=== PATIENT | male | born 1950 | race Caucasian/White ===

== ENCOUNTER 2018-10-28 22:44 | Emergency (ER) | payer MEDICARE, BC ==
--- NOTE | 2018-10-28 23:17 | EDM.PDOC ---
ED HPI GENERAL MEDICAL PROBLEM - General Chief Complaint: Chest Pain Stated Complaint: FELL AND HURT RIB CAGE [id number] Time Seen by Provider: 10/28/18 23:14 Source of Information: Reports: Patient History Limitations: Reports: No Limitations - History of Present Illness INITIAL COMMENTS - FREE TEXT/NARRATIVE: states fell onto metal steps going into the [place] at 1pm today been hurting since. denies urine colour change, denies abd pain as result but has been nervous about the pain and been tightening abd muscle more than usual. otherwise only left rib area hurts. ate dinner fine without problems. Left Thoracic Pain Score (Numeric/FACES): 6 - Related Data Allergies Allergy/AdvReac Type Severity Reaction Status Date / Time amoxicillin [Amoxicillin] Allergy Blisters Verified 10/28/18 23:00 amoxicillin trihydrate Allergy Blisters Verified 10/28/18 23:00 [From Augmentin] potassium clavulanate Allergy Blisters Verified 10/28/18 23:00 [From Augmentin] propoxyphene Allergy Rash Verified 10/28/18 23:00 rofecoxib Allergy Weakness Verified 10/28/18 23:00 Home Meds: Home Meds Ciprofloxacin HCl 500 mg PO BID 04/01/14 [History] Simvastatin 20 mg PO BEDTIME 04/01/14 [History] Tamsulosin HCl 0.4 mg PO BEDTIME 04/01/14 [History] Past Medical History HEENT History: Reports: Hard of Hearing, Impaired Vision Other HEENT History: Hortons disease Cardiovascular History: Reports: High Cholesterol Respiratory History: Reports: COPD Musculoskeletal History: Reports: Back Pain, Chronic Oncologic (Cancer) History: Reports: Prostate Social & Family History - Tobacco Use Smoking Status *Q: Current Every Day Smoker Years of Tobacco use: 53 Packs/Tins Daily: 0.5 Second Hand Smoke Exposure: Yes - Recreational Drug Use Recreational Drug Use: No ED ROS GENERAL - Review of Systems Review Of Systems: ROS reveals no pertinent complaints other than HPI. ED EXAM, GENERAL - Physical Exam Exam: See Below Exam Limited By: No Limitations General Appearance: Alert, WD/WN, Mild Distress, Other (disomcfort) Ears: Hearing Grossly Normal Throat/Mouth: Normal Voice, No Airway Compromise Head: Atraumatic Neck: Non-Tender, Full Range of Motion Respiratory/Chest: No Respiratory Distress, Lungs Clear, Normal Breath Sounds, Other (tender left lateral subcostal without E/C) Cardiovascular: Regular Rate, Rhythm GI/Abdominal: Soft, Non-Tender Neurological: Alert, Oriented, Normal Cognition, Normal Gait, No Motor/Sensory Deficits Psychiatric: Flat Affect Skin Exam: Warm, Dry, Normal Color Lymphatic: No Adenopathy Course - Vital Signs Last Recorded V/S: Last Vital Signs Temp 36.5 C 10/28/18 22:56 Pulse 65 10/28/18 22:56 Resp 18 10/28/18 22:56 BP 144/88 H 10/28/18 22:56 Pulse Ox 97 10/28/18 22:56 - Orders/Labs/Meds Orders: Active Orders 24 hr Category Date Time Status Ribs 2V w Chest Lt [CR] Urgent Exams 10/28/18 23:09 Ordered - Re-Assessments/Exams Free Text/Narrative Re-Assessment/Exam: 10/28/18 23:49 negative results discussed with pt who states tylenol is aedaquate for his relief. Departure - Departure Time of Disposition: 23:49 Disposition: Home, Self-Care 01 Condition: Good Clinical Impression: Contusion of rib on left side Qualifiers: Encounter type: initial encounter Qualified Code(s): S20.212A - Contusion of left front wall of thorax, initial encounter - Discharge Information Instructions: Rib Contusion Forms: ED Department Discharge Additional Instructions: 1) avoid further injury 2) take frequent deep breaths 3) recheck if there is any change or concern - My Orders Last 24 Hours: My Active Orders 10/28/18 23:09 Ribs 2V w Chest Lt [CR] Urgent - Assessment/Plan Last 24 Hours: My Active Orders 10/28/18 23:09 Ribs 2V w Chest Lt [CR] Urgent
== END 2018-10-28 23:59 | disposition home or self-care (01) ==
LOC: DL.ED 22:44
DX: S20.212A Contusion of left front wall of thorax, initial encounter (principal); F17.210 Nicotine dependence, cigarettes, uncomplicated; Z88.1 Allergy status to other antibiotic agents; W10.8XXA Fall (on) (from) other stairs and steps, initial encounter
CPT/HCPCS: 71101-LT; 99283; 99283-25

== ENCOUNTER 2018-11-01 23:05 | Inpatient (IN) | payer MEDICARE, BC ==
--- NOTE | 2018-11-01 23:07 | EDM.PDOC ---
ED HPI GENERAL MEDICAL PROBLEM - General Stated Complaint: FEVER OF 102 AND HAVENT HAD BOWL MOVEMENT Time Seen by Provider: 11/01/18 23:20 Source of Information: Reports: Patient, Family, RN, RN Notes Reviewed History Limitations: Reports: No Limitations - History of Present Illness INITIAL COMMENTS - FREE TEXT/NARRATIVE: Pt to ER with c/o fever and no BM since Wednesday. Patient states on Wednesday he slipped off the step of his skidsteer and injured the left anterior ribs. Patient states he was seen in the ER and there were no fractures. He states he has not been using narcotic pain medications, but Tylenol and a "muscle relaxant ". He states he has not been up and around much, and it is very painful to take deep breaths. He states yesterday he began having chill. Today chills, fever up to 102, nausea, SOB, and still no BM. He states he had a suppository a few days ago and only watery stool came out. Onset: Gradual Lower Abdomen Pain Score (Numeric/FACES): 6 - Related Data Allergies Allergy/AdvReac Type Severity Reaction Status Date / Time amoxicillin [Amoxicillin] Allergy Blisters Verified 11/01/18 23:24 amoxicillin trihydrate Allergy Blisters Verified 11/01/18 23:24 [From Augmentin] potassium clavulanate Allergy Blisters Verified 11/01/18 23:24 [From Augmentin] propoxyphene Allergy Rash Verified 11/01/18 23:24 rofecoxib Allergy Weakness Verified 11/01/18 23:24 Home Meds: Home Meds Ciprofloxacin HCl 500 mg PO BID 04/01/14 [History] Simvastatin 20 mg PO BEDTIME 04/01/14 [History] Tamsulosin HCl 0.4 mg PO BEDTIME 04/01/14 [History] Past Medical History HEENT History: Reports: Hard of Hearing, Impaired Vision Other HEENT History: Hortons disease Cardiovascular History: Reports: High Cholesterol Respiratory History: Reports: COPD Musculoskeletal History: Reports: Back Pain, Chronic Oncologic (Cancer) History: Reports: Prostate ED ROS GENERAL - Review of Systems Review Of Systems: ROS reveals no pertinent complaints other than HPI. ED EXAM, GENERAL - Physical Exam Exam: See Below Exam Limited By: No Limitations General Appearance: Alert, WD/WN, Moderate Distress Eye Exam: Bilateral Eye: EOMI, Normal Inspection Ears: Normal External Exam, Hearing Grossly Normal Nose: Normal Inspection Throat/Mouth: Normal Inspection, Normal Voice, No Airway Compromise Head: Atraumatic, Normocephalic Neck: Normal Inspection, Supple, Non-Tender, Full Range of Motion Respiratory/Chest: Decreased Breath Sounds (left), Crackles (left base) Cardiovascular: Normal Peripheral Pulses, Regular Rate, Rhythm, No Edema, No Gallop, No JVD, No Murmur, No Rub Peripheral Pulses: 2+: Radial (L), Radial (R) GI/Abdominal: Distended, Guarding, Tender, Abnormal Bowel Sounds (hyperactive) (Male) Exam: Deferred Rectal (Males) Exam: Deferred Back Exam: Normal Inspection, Full Range of Motion, NT Extremities: Normal Inspection, Normal Range of Motion, Non-Tender, Normal Capillary Refill, No Pedal Edema Neurological: Alert, Oriented, CN II-XII Intact, Normal Cognition, Normal Gait, Normal Reflexes, No Motor/Sensory Deficits Psychiatric: Normal Affect, Normal Mood Skin Exam: Warm, Dry, Intact, Normal Color, No Rash Lymphatic: No Adenopathy Course - Vital Signs Last Recorded V/S: Last Vital Signs Temp 98.7 F 11/02/18 00:08 Pulse 77 11/02/18 00:08 Resp 14 11/02/18 00:08 BP 126/53 L 11/02/18 00:08 Pulse Ox 94 L 11/02/18 00:08 - Orders/Labs/Meds Orders: Active Orders 24 hr Category Date Time Status Abdomen 2V AP Flat Upright [CR] Urgent Exams 11/01/18 23:30 Taken Chest 2V [CR] Urgent Exams 11/01/18 23:30 Taken CULTURE BLOOD [BC] Stat Lab 11/01/18 23:20 Results CULTURE BLOOD [BC] Stat Lab 11/01/18 23:25 Received Sodium Chloride 0.9% [Normal Saline] 1,000 ml Med 11/01/18 23:45 Active IV ASDIRECTED Blood Culture x2 Reflex Set [OM.PC] Stat Oth 11/01/18 23:11 Ordered Medication Orders Sodium Chloride (Normal Saline) 1,000 mls @ 999 mls/hr IV ASDIRECTED ABDI Last Admin: 11/01/18 23:50 Dose: 999 mls/hr Labs: Laboratory Tests 11/01/18 11/01/1811/01/19 Range/Units 23:20 23:20 23:20 WBC 19.0 H (5.0-10.0) 10^3/uL RBC 4.73 (4.6-6.2) 10^6/uL Hgb 14.1 D (14.0-18.0) g/dL Hct 42.3 (40.0-54.0) % MCV 89.4 (80-100) fL MCH 29.8 (27.0-34.0) pg MCHC 33.3 (33.0-35.0) g/dL Plt Count 303 D (150-450) 10^3/uL Neut % (Auto) 86.6 H (42.2-75.2) % Lymph % (Auto) 5.4 L (20.5-50.1) % Tripp % (Auto) 7.6 (2-8) % Eos % (Auto) 0.2 L (1.0-3.0) % Baso % (Auto) 0.2 (0.0-1.0) % Sodium 132 L (135-145) mmol/L Potassium 3.7 (3.6-5.0) mmol/L Chloride 96 L (101-111) mmol/L Carbon Dioxide 24.0 (21.0-31.0) mmol/L Anion Gap 15.7 BUN 18 (7-18) mg/dL Creatinine 1.5 H (0.6-1.3) mg/dL Est Cr Clr Drug Dosing 47.84 mL/min Estimated GFR (MDRD) 47 BUN/Creatinine Ratio 12.00 Glucose 122 H (74-105) mg/dL Lactic Acid 0.9 (0.5-2.2) mmol/L Calcium 8.9 (8.4-10.2) mg/dl Total Bilirubin 0.9 (0.2-1.0) mg/dL AST 17 (10-42) IU/L ALT 11 (10-60) IU/L Alkaline Phosphatase 61 (42-121) IU/L Total Protein 6.7 (6.7-8.2) g/dl Albumin 3.5 (3.2-5.5) g/dl Globulin 3.2 Albumin/Globulin Ratio 1.09 Urine Color (YELLOW) Urine Appearance (CLEAR) Urine pH (5.0-9.0) Ur Specific [place] (1.005-1.030) Urine Protein (NEGATIVE) Urine Glucose (UA) (NEGATIVE) Urine Ketones (NEGATIVE) Urine Occult Blood (NEGATIVE) Urine Nitrite (NEGATIVE) Urine Bilirubin (NEGATIVE) Urine Urobilinogen (0.2-1.0) mg/dL Ur Leukocyte Esterase (NEGATIVE) Urine RBC /HPF Urine WBC (0-5/HPF) /HPF Ur Epithelial Cells (NOT SEEN) /HPF Urine Bacteria (0-FEW/HPF) /HPF Hyaline Casts (NOT SEEN) /LPF 11/02/18 Range/Units 01:04 WBC (5.0-10.0) 10^3/uL RBC (4.6-6.2) 10^6/uL Hgb (14.0-18.0) g/dL Hct (40.0-54.0) % MCV (80-100) fL MCH (27.0-34.0) pg MCHC (33.0-35.0) g/dL Plt Count (150-450) 10^3/uL Neut % (Auto) (42.2-75.2) % Lymph % (Auto) (20.5-50.1) % Tripp % (Auto) (2-8) % Eos % (Auto) (1.0-3.0) % Baso % (Auto) (0.0-1.0) % Sodium (135-145) mmol/L Potassium (3.6-5.0) mmol/L Chloride (101-111) mmol/L Carbon Dioxide (21.0-31.0) mmol/L Anion Gap BUN (7-18) mg/dL Creatinine (0.6-1.3) mg/dL Est Cr Clr Drug Dosing mL/min Estimated GFR (MDRD) BUN/Creatinine Ratio Glucose (74-105) mg/dL Lactic Acid (0.5-2.2) mmol/L Calcium (8.4-10.2) mg/dl Total Bilirubin (0.2-1.0) mg/dL AST (10-42) IU/L ALT (10-60) IU/L Alkaline Phosphatase (42-121) IU/L Total Protein (6.7-8.2) g/dl Albumin (3.2-5.5) g/dl Globulin Albumin/Globulin Ratio Urine Color Yellow (YELLOW) Urine Appearance Slightly cloudy (CLEAR) Urine pH 7.0 (5.0-9.0) Ur Specific [place] 1.015 (1.005-1.030) Urine Protein Negative (NEGATIVE) Urine Glucose (UA) Negative (NEGATIVE) Urine Ketones Negative (NEGATIVE) Urine Occult Blood Moderate H (NEGATIVE) Urine Nitrite Negative (NEGATIVE) Urine Bilirubin Negative (NEGATIVE) Urine Urobilinogen 0.2 (0.2-1.0) mg/dL Ur Leukocyte Esterase Negative (NEGATIVE) Urine RBC 5-10 H /HPF Urine WBC 0-5 (0-5/HPF) /HPF Ur Epithelial Cells Few (NOT SEEN) /HPF Urine Bacteria Moderate H (0-FEW/HPF) /HPF Hyaline Casts Few H (NOT SEEN) /LPF Meds: Medications Generic Name Dose Route Start Last Admin Trade Name Freq PRN Reason Stop Dose Admin Sodium Chloride 1,000 mls @ 999 mls/hr 11/01/18 23:45 11/01/18 23:50 Normal Saline IV 999 mls/hr ASDIRECTED ABDI Administration Discontinued Medications Generic Name Dose Route Start Last Admin Trade Name Freq PRN Reason Stop Dose Admin Ondansetron HCl 4 mg 11/01/18 23:43 11/01/18 23:55 Zofran IV 11/01/18 23:44 4 mg ONETIME ONE Administration - Radiology Interpretation Free Text/Narrative:: Chest xray: FINDINGS: Lungs: Artifact or moderate sized layering left pleural effusion. Possible subsegmental atelectasis or pneumonia also left lung base. Pleural space: Unremarkable. No pleural effusion. No pneumothorax. Heart/Mediastinum: The cardiac silhouette is not enlarged. Bones/joints: Pectus excavatum deformity. IMPRESSION: 1. Artifact or moderate sized layering left pleural effusion. 2. Possible subsegmental atelectasis or pneumonia also left lung base. 3. These findings were not appreciated previously. Thank you for allowing us to participate in the care of your patient. Dictated and Authenticated by: Ramos Aparicio MD 11/02/2018 1:14 AM Central Time ([place] & [place]) Flat and upright xray: FINDINGS: Gastrointestinal tract: Normal. No bowel dilation. Intraperitoneal space: Lymphadenectomy clips in the pelvis. Bones/joints: Unremarkable for age. IMPRESSION: 1. No obstruction. 2. There is an above average quantity of stool within colon to the rectum. Thank you for allowing us to participate in the care of your patient. Dictated and Authenticated by: Ramos Aparicio MD 11/02/2018 1:18 AM Central Time ([place] & [place]) See rad report Departure - Departure Time of Disposition: 01:35 Disposition: Admitted As Inpatient 66 Condition: Fair Clinical Impression: Pneumonia Qualifiers: Pneumonia type: due to unspecified organism Laterality: left Lung location: lower lobe of lung Qualified Code(s): J18.1 - Lobar pneumonia, unspecified organism Contusion of rib on left side Qualifiers: Encounter type: initial encounter Qualified Code(s): S20.212A - Contusion of left front wall of thorax, initial encounter Constipation Qualifiers: Constipation type: unspecified constipation type Qualified Code(s): K59.00 - Constipation, unspecified - Discharge Information *PRESCRIPTION DRUG MONITORING PROGRAM REVIEWED*: No *COPY OF PRESCRIPTION DRUG MONITORING REPORT IN PATIENT JAYE: No - My Orders Last 24 Hours: My Active Orders 11/01/18 23:11 Blood Culture x2 Reflex Set [OM.PC] Stat 11/01/18 23:20 CULTURE BLOOD [BC] Stat 11/01/18 23:25 CULTURE BLOOD [BC] Stat 11/01/18 23:30 Abdomen 2V AP Flat Upright [CR] Urgent Chest 2V [CR] Urgent 11/01/18 23:45 Sodium Chloride 0.9% [Normal Saline] 1,000 ml IV ASDIRECTED - Assessment/Plan Last 24 Hours: My Active Orders 11/01/18 23:11 Blood Culture x2 Reflex Set [OM.PC] Stat 11/01/18 23:20 CULTURE BLOOD [BC] Stat 11/01/18 23:25 CULTURE BLOOD [BC] Stat 11/01/18 23:30 Abdomen 2V AP Flat Upright [CR] Urgent Chest 2V [CR] Urgent 11/01/18 23:45 Sodium Chloride 0.9% [Normal Saline] 1,000 ml IV ASDIRECTED
[2018-11-01] MEDS ORDERED: Ondansetron 4 MG/2 ML SDV IV ONE (23:43)
[2018-11-01] MEDS ORDERED: Sodium Chloride 0.9% 1,000 ML IV SCH (23:45)
[2018-11-01 23:57] LABS: ANION GAP 15.7
[2018-11-02] MEDS ORDERED: Ibuprofen 400 MG Tab PO PRN (03:12)
[2018-11-02] MEDS ORDERED: Zolpidem 5 MG Tab PO PRN (03:12)
--- NOTE | 2018-11-02 03:20 | PCM.HP ---
H&P History of Present Illness - General Date of Service: 11/02/18 Admit Problem/Dx: Admission Diagnosis/Problem Admission Diagnosis/Problem Pneumonia - History of Present Illness Initial Comments - Free Text/Narative: 68-year-old gentleman presented with constipation, left upper abdominal/left lower rib cage pain, fever and chills. Few days ago the patient fell and hit the left lower rib cage. Was in the emergency room. No fracture was noted. At home was taking Tylenol and "muscle relaxant" He developed chills, associated fever, sputum. Sputum is yellow. Had no bowel movement for 5 days. Complaining of abdominal discomfort radiating. After taking a laxative had watery bowel movements only. Lower Abdomen Pain Score (Numeric/FACES): 0 - Related Data Allergies/Adverse Reactions: Allergies Allergy/AdvReac Type Severity Reaction Status Date / Time amoxicillin [Amoxicillin] Allergy Blisters Verified 11/02/18 01:57 amoxicillin trihydrate Allergy Blisters Verified 11/02/18 01:57 [From Augmentin] potassium clavulanate Allergy Blisters Verified 11/02/18 01:57 [From Augmentin] propoxyphene Allergy Rash Verified 11/02/18 01:57 rofecoxib Allergy Weakness Verified 11/02/18 01:57 Home Medications: Home Meds Simvastatin 20 mg PO BEDTIME 04/01/14 [History] predniSONE [Prednisone] 4 mg PO DAILY 11/02/18 [History] Past Medical History HEENT History: Reports: Hard of Hearing, Impaired Vision Other HEENT History: Hortons disease Cardiovascular History: Reports: High Cholesterol Respiratory History: Reports: COPD Musculoskeletal History: Reports: Back Pain, Chronic Oncologic (Cancer) History: Reports: Prostate Social & Family History - Tobacco Use Smoking Status *Q: Current Every Day Smoker Years of Tobacco use: 53 Packs/Tins Daily: 0.5 Second Hand Smoke Exposure: No - Caffeine Use Caffeine Use: Reports: None - Recreational Drug Use Recreational Drug Use: No H&P Review of Systems - Review of Systems: Review Of Systems: See Below General: Reports: Fever, Chills Pulmonary: Denies: Shortness of Breath, Wheezing Cardiovascular: Reports: Chest Pain (Left lower rib cage pain with movements and touch). Denies: Edema Gastrointestinal: Reports: Abdominal Pain (Worse radiating), Constipation. Denies: Black Stool, Bloody Stool, Vomiting Genitourinary: Denies: Dysuria Musculoskeletal: Reports: Muscle Pain Psychiatric: Denies: Confusion Exam - Exam Exam: See Below - Vital Signs Vital Signs: Last Vital Signs Temp 37.4 C 11/02/18 01:40 Pulse 75 11/02/18 01:40 Resp 16 11/02/18 01:40 BP 131/71 11/02/18 01:40 Pulse Ox 96 11/02/18 01:40 Weight: 70.76 kg - Exam General: Alert, Oriented Neck: Supple Lungs: Clear to Auscultation, Normal Respiratory Effort, Other (Reproducible tenderness left lower rib cage) Cardiovascular: Regular Rate, Regular Rhythm GI/Abdominal Exam: Normal Bowel Sounds, Soft, Non-Tender (Other than rib cage pain when pressing). No: Distended, Rigid, Rebound Extremities: No Pedal Edema - Patient Data Lab Results Last 24 hrs: Laboratory Results - last 24 hr 11/01/18 11/01/18 11/01/18 Range/Units 23:20 23:20 23:20 WBC 19.0 H (5.0-10.0) 10^3/uL RBC 4.73 (4.6-6.2) 10^6/uL Hgb 14.1 D (14.0-18.0) g/dL Hct 42.3 (40.0-54.0) % MCV 89.4 (80-100) fL MCH 29.8 (27.0-34.0) pg MCHC 33.3 (33.0-35.0) g/dL Plt Count 303 D (150-450) 10^3/uL Neut % (Auto) 86.6 H (42.2-75.2) % Lymph % (Auto) 5.4 L (20.5-50.1) % [place] % (Auto) 7.6 (2-8) % Eos % (Auto) 0.2 L (1.0-3.0) % Baso % (Auto) 0.2 (0.0-1.0) % Sodium 132 L (135-145) mmol/L Potassium 3.7 (3.6-5.0) mmol/L Chloride 96 L (101-111) mmol/L Carbon Dioxide 24.0 (21.0-31.0) mmol/L Anion Gap 15.7 BUN 18 (7-18) mg/dL Creatinine 1.5 H (0.6-1.3) mg/dL Est Cr Clr Drug Dosing 47.84 mL/min Estimated GFR (MDRD) 47 BUN/Creatinine Ratio 12.00 Glucose 122 H (74-105) mg/dL Lactic Acid 0.9 (0.5-2.2) mmol/L Calcium 8.9 (8.4-10.2) mg/dl Total Bilirubin 0.9 (0.2-1.0) mg/dL AST 17 (10-42) IU/L ALT 11 (10-60) IU/L Alkaline Phosphatase 61 (42-121) IU/L Total Protein 6.7 (6.7-8.2) g/dl Albumin 3.5 (3.2-5.5) g/dl Globulin 3.2 Albumin/Globulin Ratio 1.09 Urine Color (YELLOW) Urine Appearance (CLEAR) Urine pH (5.0-9.0) Ur Specific [place] (1.005-1.030) Urine Protein (NEGATIVE) Urine Glucose (UA) (NEGATIVE) Urine Ketones (NEGATIVE) Urine Occult Blood (NEGATIVE) Urine Nitrite (NEGATIVE) Urine Bilirubin (NEGATIVE) Urine Urobilinogen (0.2-1.0) mg/dL Ur Leukocyte Esterase (NEGATIVE) Urine RBC /HPF Urine WBC (0-5/HPF) /HPF Ur Epithelial Cells (NOT SEEN) /HPF Urine Bacteria (0-FEW/HPF) /HPF Hyaline Casts (NOT SEEN) /LPF 11/02/18 Range/Units 01:04 WBC (5.0-10.0) 10^3/uL RBC (4.6-6.2) 10^6/uL Hgb (14.0-18.0) g/dL Hct (40.0-54.0) % MCV (80-100) fL MCH (27.0-34.0) pg MCHC (33.0-35.0) g/dL Plt Count (150-450) 10^3/uL Neut % (Auto) (42.2-75.2) % Lymph % (Auto) (20.5-50.1) % [place] % (Auto) (2-8) % Eos % (Auto) (1.0-3.0) % Baso % (Auto) (0.0-1.0) % Sodium (135-145) mmol/L Potassium (3.6-5.0) mmol/L Chloride (101-111) mmol/L Carbon Dioxide (21.0-31.0) mmol/L Anion Gap BUN (7-18) mg/dL Creatinine (0.6-1.3) mg/dL Est Cr Clr Drug Dosing mL/min Estimated GFR (MDRD) BUN/Creatinine Ratio Glucose (74-105) mg/dL Lactic Acid (0.5-2.2) mmol/L Calcium (8.4-10.2) mg/dl Total Bilirubin (0.2-1.0) mg/dL AST (10-42) IU/L ALT (10-60) IU/L Alkaline Phosphatase (42-121) IU/L Total Protein (6.7-8.2) g/dl Albumin (3.2-5.5) g/dl Globulin Albumin/Globulin Ratio Urine Color Yellow (YELLOW) Urine Appearance Slightly cloudy (CLEAR) Urine pH 7.0 (5.0-9.0) Ur Specific [place] 1.015 (1.005-1.030) Urine Protein Negative (NEGATIVE) Urine Glucose (UA) Negative (NEGATIVE) Urine Ketones Negative (NEGATIVE) Urine Occult Blood Moderate H (NEGATIVE) Urine Nitrite Negative (NEGATIVE) Urine Bilirubin Negative (NEGATIVE) Urine Urobilinogen 0.2 (0.2-1.0) mg/dL Ur Leukocyte Esterase Negative (NEGATIVE) Urine RBC 5-10 H /HPF Urine WBC 0-5 (0-5/HPF) /HPF Ur Epithelial Cells Few (NOT SEEN) /HPF Urine Bacteria Moderate H (0-FEW/HPF) /HPF Hyaline Casts Few H (NOT SEEN) /LPF Result Diagrams: 11/01/18 23:20 11/01/18 23:20 Kervin Results Last 24 hrs: Microbiology 11/01/18 23:20 Anaerobic Blood Culture - Final Blood - Venous - Problem List (1) Constipation SNOMED Code(s): 95326751 ICD Code: K59.00 - CONSTIPATION, UNSPECIFIED Status: Acute Current Visit : Yes Qualifiers: Constipation type: unspecified constipation type Qualified Code(s): K59.00 - Constipation, unspecified (2) Contusion of rib on left side SNOMED Code(s): 226251090 ICD Code: S20.212A - CONTUSION OF LEFT FRONT WALL OF THORAX, INITIAL ENCOUNTER Status: Acute Current Visit: Yes Qualifiers: Encounter type: initial encounter Qualified Code(s): S20.212A - Contusion of left front wall of thorax, initial encounter (3) Pneumonia SNOMED Code(s): 688149387 ICD Code: J18.9 - PNEUMONIA, UNSPECIFIED ORGANISM Status: Acute Current Visit: Yes Qualifiers: Pneumonia type: due to unspecified organism Laterality: left Lung location: lower lobe of lung Qualified Code(s): J18.1 - Lobar pneumonia, unspecified organism Problem List Initiated/Reviewed/Updated: Yes Orders Last 24hrs: Active Orders 24 hr Category Date Time Status Patient Status [ADT] Routine ADT 11/02/18 03:12 Ordered Antiembolic Devices [RC] PER UNIT ROUTINE Care 11/02/18 03:14 Ordered Oxygen Therapy [RC] PRN Care 11/02/18 03:12 Ordered Peripheral IV Care [RC] . DIRECTED Care 11/02/18 03:14 Ordered Up ad Josie [RC] ASDIRECTED Care 11/02/18 03:12 Ordered VTE/DVT Education [RC] PER UNIT ROUTINE Care 11/02/18 03:12 Ordered Vital Signs [RC] Q4H Care 11/02/18 03:12 Ordered Regular Diet [DIET] Diet 11/02/18 Breakfast Ordered Abdomen 2V AP Flat Upright [CR] Urgent Exams 11/01/18 23:30 Taken Chest 2V [CR] Urgent Exams 11/01/18 23:30 Taken BASIC METABOLIC PANEL,BMP [CHEM] AM Lab 11/02/18 05:11 Ordered CBC WITH AUTO DIFF [HEME] AM Lab 11/02/18 05:11 Ordered CULTURE BLOOD [BC] Stat Lab 11/01/18 23:20 Results CULTURE BLOOD [BC] Stat Lab 11/01/18 23:25 Received CULTURE SPUTUM + SMEAR [RM] Routine Lab 11/02/18 03:02 Ordered Acetaminophen [Tylenol] Med 11/02/18 03:12 Ordered 650 mg PO Q4H PRN Docusate Sodium/Sennosides [Senna Plus] Med 11/02/18 09:00 Ordered 1 tab PO BID Heparin Sodium Med 11/02/18 06:00 Ordered 5,000 units SUBCUT Q8HR Ibuprofen [Motrin] Med 11/02/18 03:12 Ordered 400 mg PO Q6H PRN Lactulose [Cephulac] Med 11/02/18 09:00 Ordered 20 gm PO BID Levofloxacin/Dextrose 5%-Water [Levaquin in D5W 750 MG/ Med 11/02/18 03:15 Ordered 150 ML] 750 mg Premix Bag 1 bag IV Q24H Simvastatin [Simvastatin] Med 11/02/18 21:00 Ordered 20 mg PO BEDTIME Sodium Chloride 0.9% [Normal Saline] 1,000 ml Med 11/01/18 23:45 Active IV ASDIRECTED Sodium Chloride 0.9% [Saline Flush] Med 11/02/18 03:12 Ordered 10 ml FLUSH ASDIRECTED PRN Sodium Chloride 0.9% with KCl 20 mEq @ 75 mL/Hr (1000 Med 11/02/18 03:15 Ordered mL) NS + KCl 20mEq/L [Normal Saline with 20 mEq KCl] 1,000 ml IV ASDIRECTED Zolpidem [Ambien] Med 11/02/18 03:12 Ordered 5 mg PO BEDTIME PRN predniSONE Med 11/02/18 09:00 Ordered 4 mg PO DAILY Antiembolic Hose [OM.PC] Per Unit Routine Oth 11/02/18 03:13 Ordered Blood Culture x2 Reflex Set [OM.PC] Stat Oth 11/01/18 23:11 Ordered Peripheral IV Insertion Adult [OM.PC] Routine Oth 11/02/18 03:12 Ordered Resuscitation Status Routine Resus Stat 11/02/18 03:12 Ordered Medication Orders Sodium Chloride (Normal Saline) 1,000 mls @ 999 mls/hr IV ASDIRECTED [facility] Last Admin: 11/01/18 23:50 Dose: 999 mls/hr Levofloxacin/Dextrose 750 mg/ (Premix) 150 mls @ 100 mls/hr IV Q24H [facility] Potassium Chloride/Sodium Chloride (Normal Saline With 20 Meq Kcl) 1,000 mls @ 75 mls/hr IV ASDIRECTED [facility] Lactulose (Cephulac) 20 gm PO BID [facility] Non-Formulary Medication (Simvastatin [Simvastatin]) 20 mg PO BEDTIME [facility] Prednisone (Prednisone) 4 mg PO DAILY [facility] Senna/Docusate Sodium (Senna Plus) 1 tab PO BID [facility] Assessment/Plan Comment:: Left rib cage pain secondary to trauma No apparent rib fracture Constipation Abdomen x-ray show retained stool Will use lactulose, Senokot Fever, leukocytosis, possible left lower lobe infiltrate Likely pneumonia, community-acquired Obtain sputum culture Obtain blood culture Will treat with levofloxacin Leukocytosis might related to patient's steroid use for temporal arthritis Continue 4 mg prednisone daily Pain control Patient would like to avoid narcotics Will use Tylenol and cautiously nonsteroidals with mildly increased creatinine Dyslipidemia Continue home dose Zocor DVT prophylaxis with subcutaneous heparin
[2018-11-02] MEDS ORDERED: Levofloxacin/Dextrose 5%-Water 150 ML IV ONE (03:48)
[2018-11-02] MEDS ORDERED: NS + KCl 20mEq/L 1,000 ML ONE (03:58)
[2018-11-02] MEDS: Sodium Chloride 0.9% 10 ML Syringe FLUSH PRN ×2 (04:03→05:41)
[2018-11-02] MEDS: Levofloxacin/Dextrose 5%-Water 750 MG in Premix Bag 1 BAG IV SCH (04:06)
[2018-11-02] MEDS: NS + KCl 20mEq/L 1,000 ML IV SCH ×2 (05:47→20:08)
[2018-11-02] MEDS: Heparin Sodium 5,000 Units/ML Vial SUBCUT SCH ×3 (05:53→22:01)
[2018-11-02 06:53] LABS: ANION GAP 15.1
[2018-11-02] MEDS: Lactulose Soln 10 GM/15 ML 30 ML UD Cup PO SCH ×2 (09:53→22:01)
[2018-11-02] MEDS: predniSONE 1 MG Tab PO SCH (09:54)
[2018-11-02] MEDS: Lidocaine 5% 700 MG Patch TOP SCH (10:02)
--- NOTE | 2018-11-02 11:30 | PCM.PN ---
- General Info Date of Service: 11/02/18 Subjective Update: Feeling better. Shortness of breath is less. No chills. Continues to have moderate Pain at the left lower rib cage area. Worse with touch and deep breath and movements. Functional Status: Denies: Pain Controlled - Review of Systems General: Denies: Fever Pulmonary: Denies: Shortness of Breath Cardiovascular: Reports: Chest Pain Gastrointestinal: Denies: Abdominal Pain Genitourinary: Denies: Dysuria Psychiatric: Denies: Confusion - Patient Data Vitals - Most Recent: Last Vital Signs Temp 37.2 C 11/02/18 07:12 Pulse 70 11/02/18 07:12 Resp 18 11/02/18 07:12 BP 123/59 L 11/02/18 07:12 Pulse Ox 94 L 11/02/18 07:12 Weight - Most Recent: 70.76 kg I&O - Last 24 Hours: Intake & Output 11/01/18 11/02/18 11/02/18 22:59 06:59 14:59 Intake Total 1002 Output Total 360 400 Balance 642 -400 Lab Results Last 24 Hours: Laboratory Results - last 24 hr 11/01/18 11/01/18 11/01/18 Range/Units 23:20 23:20 23:20 WBC 19.0 H (5.0-10.0) 10^3/uL RBC 4.73 (4.6-6.2) 10^6/uL Hgb 14.1 D (14.0-18.0) g/dL Hct 42.3 (40.0-54.0) % MCV 89.4 (80-100) fL MCH 29.8 (27.0-34.0) pg MCHC 33.3 (33.0-35.0) g/dL Plt Count 303 D (150-450) 10^3/uL Neut % (Auto) 86.6 H (42.2-75.2) % Lymph % (Auto) 5.4 L (20.5-50.1) % [place] % (Auto) 7.6 (2-8) % Eos % (Auto) 0.2 L (1.0-3.0) % Baso % (Auto) 0.2 (0.0-1.0) % Sodium 132 L (135-145) mmol/L Potassium 3.7 (3.6-5.0) mmol/L Chloride 96 L (101-111) mmol/L Carbon Dioxide 24.0 (21.0-31.0) mmol/L Anion Gap 15.7 BUN 18 (7-18) mg/dL Creatinine 1.5 H (0.6-1.3) mg/dL Est Cr Clr Drug Dosing 47.84 mL/min Estimated GFR (MDRD) 47 BUN/Creatinine Ratio 12.00 Glucose 122 H (74-105) mg/dL Lactic Acid 0.9 (0.5-2.2) mmol/L Calcium 8.9 (8.4-10.2) mg/dl Total Bilirubin 0.9 (0.2-1.0) mg/dL AST 17 (10-42) IU/L ALT 11 (10-60) IU/L Alkaline Phosphatase 61 (42-121) IU/L Total Protein 6.7 (6.7-8.2) g/dl Albumin 3.5 (3.2-5.5) g/dl Globulin 3.2 Albumin/Globulin Ratio 1.09 Urine Color (YELLOW) Urine Appearance (CLEAR) Urine pH (5.0-9.0) Ur Specific [place] (1.005-1.030) Urine Protein (NEGATIVE) Urine Glucose (UA) (NEGATIVE) Urine Ketones (NEGATIVE) Urine Occult Blood (NEGATIVE) Urine Nitrite (NEGATIVE) Urine Bilirubin (NEGATIVE) Urine Urobilinogen (0.2-1.0) mg/dL Ur Leukocyte Esterase (NEGATIVE) Urine RBC /HPF Urine WBC (0-5/HPF) /HPF Ur Epithelial Cells (NOT SEEN) /HPF Urine Bacteria (0-FEW/HPF) /HPF Hyaline Casts (NOT SEEN) /LPF 11/02/18 11/02/18 11/02/18 Range/Units 01:04 06:10 06:10 WBC 15.9 H (5.0-10.0) 10^3/uL RBC 4.17 L (4.6-6.2) 10^6/uL Hgb 12.4 L D (14.0-18.0) g/dL Hct 37.8 L (40.0-54.0) % MCV 90.6 (80-100) fL MCH 29.7 (27.0-34.0) pg MCHC 32.8 L (33.0-35.0) g/dL Plt Count 282 (150-450) 10^3/uL Neut % (Auto) 84.5 H (42.2-75.2) % Lymph % (Auto) 6.7 L (20.5-50.1) % [place] % (Auto) 8.2 H (2-8) % Eos % (Auto) 0.3 L (1.0-3.0) % Baso % (Auto) 0.3 (0.0-1.0) % Sodium 136 (135-145) mmol/L Potassium 4.1 (3.6-5.0) mmol/L Chloride 101 (101-111) mmol/L Carbon Dioxide 24.0 (21.0-31.0) mmol/L Anion Gap 15.1 BUN 16 (7-18) mg/dL Creatinine 1.3 (0.6-1.3) mg/dL Est Cr Clr Drug Dosing 54.43 mL/min Estimated GFR (MDRD) 55 BUN/Creatinine Ratio Glucose 91 (74-105) mg/dL Lactic Acid (0.5-2.2) mmol/L Calcium 8.7 (8.4-10.2) mg/dl Total Bilirubin (0.2-1.0) mg/dL AST (10-42) IU/L ALT (10-60) IU/L Alkaline Phosphatase (42-121) IU/L Total Protein (6.7-8.2) g/dl Albumin (3.2-5.5) g/dl Globulin Albumin/Globulin Ratio Urine Color Yellow (YELLOW) Urine Appearance Slightly cloudy (CLEAR) Urine pH 7.0 (5.0-9.0) Ur Specific [place] 1.015 (1.005-1.030) Urine Protein Negative (NEGATIVE) Urine Glucose (UA) Negative (NEGATIVE) Urine Ketones Negative (NEGATIVE) Urine Occult Blood Moderate H (NEGATIVE) Urine Nitrite Negative (NEGATIVE) Urine Bilirubin Negative (NEGATIVE) Urine Urobilinogen 0.2 (0.2-1.0) mg/dL Ur Leukocyte Esterase Negative (NEGATIVE) Urine RBC 5-10 H /HPF Urine WBC 0-5 (0-5/HPF) /HPF Ur Epithelial Cells Few (NOT SEEN) /HPF Urine Bacteria Moderate H (0-FEW/HPF) /HPF Hyaline Casts Few H (NOT SEEN) /LPF Kervin Results Last 24 Hours: Microbiology 11/01/18 23:20 Anaerobic Blood Culture - Final Blood - Venous Med Orders - Current: Current Medications Acetaminophen (Tylenol) 650 mg PO Q4H PRN PRN Reason: Pain (Mild 1-3)/fever Heparin Sodium (Porcine) (Heparin Sodium) 5,000 units SUBCUT Q8HR [facility] Last Admin: 11/02/18 05:53 Dose: 5,000 units Sodium Chloride (Normal Saline) 1,000 mls @ 999 mls/hr IV ASDIRECTED [facility] Last Admin: 11/01/18 23:50 Dose: 999 mls/hr Levofloxacin/Dextrose 750 mg/ (Premix) 150 mls @ 100 mls/hr IV Q48H [facility] Last Infusion: 11/02/18 05:41 Dose: Infused Potassium Chloride/Sodium Chloride (Normal Saline With 20 Meq Kcl) 1,000 mls @ 75 mls/hr IV ASDIRECTED [facility] Last Admin: 11/02/18 05:47 Dose: 75 mls/hr Ibuprofen (Motrin) 400 mg PO Q6H PRN PRN Reason: Pain (moderate 4-6) Lactulose (Cephulac) 20 gm PO BID [facility] Last Admin: 11/02/18 09:53 Dose: Not Given Lidocaine (Lidoderm 5%) 0 mg TOP DAILY [facility] Last Admin: 11/02/18 10:02 Dose: 700 mg Miscellaneous Information (Remove Patch) 0 ea TRDERM DAILY@2100 [facility] Prednisone (Prednisone) 4 mg PO DAILY [facility] Last Admin: 11/02/18 09:54 Dose: 4 mg Senna/Docusate Sodium (Senna Plus) 1 tab PO BID [facility] Last Admin: 11/02/18 09:54 Dose: Not Given Simvastatin (Zocor) 20 mg PO BEDTIME [facility] Sodium Chloride (Saline Flush) 10 ml FLUSH ASDIRECTED PRN PRN Reason: Keep Vein Open Last Admin: 11/02/18 05:41 Dose: 10 ml Zolpidem Tartrate (Ambien) 5 mg PO BEDTIME PRN PRN Reason: Sleep Discontinued Medications Levofloxacin/Dextrose (Levaquin In D5w 750 Mg/150 Ml) Confirm Administered Dose 150 mls @ as directed IV .STK-MED ONE Stop: 11/02/18 03:49 Last Admin: 11/02/18 05:34 Dose: Not Given Potassium Chloride/Sodium Chloride (Normal Saline With 20 Meq Kcl) Confirm Administered Dose 1,000 mls @ as directed .ROUTE .STK-MED ONE Stop: 11/02/18 03:59 Last Admin: 11/02/18 05:35 Dose: Not Given Ondansetron HCl (Zofran) 4 mg IV ONETIME ONE Stop: 11/01/18 23:44 Last Admin: 11/01/18 23:55 Dose: 4 mg - Exam General: Alert, Oriented HEENT: EOMI Neck: Supple Lungs: Clear to Auscultation Cardiovascular: Regular Rate GI/Abdominal Exam: Normal Bowel Sounds, Soft, Non-Tender Extremities: No Pedal Edema Neurological: No New Focal Deficit Psy/Mental Status: Alert, Normal Affect, Normal Mood - Problem List & Annotations (1) Constipation SNOMED Code(s): 53775989 Code(s): K59.00 - CONSTIPATION, UNSPECIFIED Status: Acute Current Visit: Yes Qualifiers: Constipation type: unspecified constipation type Qualified Code(s): K59.00 - Constipation, unspecified (2) Contusion of rib on left side SNOMED Code(s): 478007452 Code(s): S20.212A - CONTUSION OF LEFT FRONT WALL OF THORAX, INITIAL ENCOUNTER Status: Acute Current Visit: Yes Qualifiers: Encounter type: initial encounter Qualified Code(s): S20.212A - Contusion of left front wall of thorax, initial encounter (3) Pneumonia SNOMED Code(s): 639485000 Code(s): J18.9 - PNEUMONIA, UNSPECIFIED ORGANISM Status: Acute Current Visit: Yes Qualifiers: Pneumonia type: due to unspecified organism Laterality: left Lung location: lower lobe of lung Qualified Code(s): J18.1 - Lobar pneumonia, unspecified organism - Problem List Review Problem List Initiated/Reviewed/Updated: Yes - My Orders Last 24 Hours: My Active Orders 11/02/18 03:02 CULTURE SPUTUM + SMEAR [RM] Routine 11/02/18 03:12 Patient Status [ADT] Routine Oxygen Therapy [RC] PRN Up ad Josie [RC] ASDIRECTED VTE/DVT Education [RC] PER UNIT ROUTINE Vital Signs [RC] Q4H Acetaminophen [Tylenol] 650 mg PO Q4H PRN Ibuprofen [Motrin] 400 mg PO Q6H PRN Sodium Chloride 0.9% [Saline Flush] 10 ml FLUSH ASDIRECTED PRN Zolpidem [Ambien] 5 mg PO BEDTIME PRN Peripheral IV Insertion Adult [OM.PC] Routine Resuscitation Status Routine 11/02/18 03:13 Antiembolic Hose [OM.PC] Per Unit Routine 11/02/18 03:14 Antiembolic Devices [RC] PER UNIT ROUTINE Peripheral IV Care [RC] . DIRECTED 11/02/18 03:15 NS + KCl 20mEq/L [Normal Saline with 20 mEq KCl] 1,000 ml IV ASDIRECTED 11/02/18 03:30 Levofloxacin/Dextrose 5%-Water [Levaquin in D5W 750 MG/150 ML] 750 mg Premix Bag 1 bag IV Q48H 11/02/18 06:00 Heparin Sodium 5,000 units SUBCUT Q8HR 11/02/18 09:00 Docusate Sodium/Sennosides [Senna Plus] 1 tab PO BID Lactulose [Cephulac] 20 gm PO BID predniSONE 4 mg PO DAILY 11/02/18 10:00 Lidocaine 5% [Lidoderm 5%] 0 mg TOP DAILY 11/02/18 21:00 Remove Patch 0 ea TRDERM DAILY@2100 Simvastatin [Zocor] 20 mg PO BEDTIME 11/02/18 Breakfast Regular Diet [DIET] - Plan Plan:: Left rib cage pain secondary to trauma No apparent rib fracture Constipation Abdominal x-ray show retained stool had BMs after Lactulose cont to use lactulose, Senokot Fever, leukocytosis, possible left lower lobe infiltrate Likely pneumonia, community-acquired pending sputum culture pending blood culture Will treat with levofloxacin Leukocytosis might related to patient's steroid use for temporal arthritis improving Continue 4 mg prednisone daily Pain control Patient would like to avoid narcotics Will use Tylenol and cautiously nonsteroidals with mildly increased creatinine add lidoderm patch Dyslipidemia Continue home dose Zocor DVT prophylaxis with subcutaneous heparin
[2018-11-02] MEDS: Simvastatin 10 MG Tab PO SCH (22:01)
[2018-11-03] MEDS: Acetaminophen 325 MG Tab PO PRN (06:17)
[2018-11-03] MEDS: Heparin Sodium 5,000 Units/ML Vial SUBCUT SCH ×3 (06:18→21:10)
[2018-11-03 07:19] LABS: ANION GAP 15.2; CHLORIDE,CL 102 mmol/L (101-111); SODIUM,NA 137 mmol/L (135-145)
[2018-11-03] MEDS: predniSONE 1 MG Tab PO SCH (09:03)
[2018-11-03] MEDS: Lactulose Soln 10 GM/15 ML 30 ML UD Cup PO SCH ×2 (09:04→20:48)
[2018-11-03] MEDS: Lidocaine 5% 700 MG Patch TOP SCH (09:04)
--- NOTE | 2018-11-03 09:49 | PCM.PN ---
- General Info Date of Service: 11/03/18 Admission Dx/Problem (Free Text): Admission Diagnosis/Problem Admission Diagnosis/Problem Pneumonia Subjective Update: Feeling better. No more shortness of breath. Lidocaine patch is helping with the pain. Sputum is growing gram-positive cocci in pairs. Urine strep Degenerative was ordered. Patient denied any complaints. - Review of Systems Systems Review Comment:: Compressive review of system was negative except as above. - Patient Data Vitals - Most Recent: Last Vital Signs Temp 36.9 C 11/03/18 08:00 Pulse 65 11/03/18 08:00 Resp 18 11/03/18 08:00 BP 131/63 11/03/18 08:00 Pulse Ox 94 L 11/03/18 08:00 Weight - Most Recent: 70.76 kg I&O - Last 24 Hours: Intake & Output 11/02/18 11/03/18 11/03/18 22:59 06:59 14:59 Intake Total 200 360 Balance 200 360 Lab Results Last 24 Hours: Laboratory Results - last 24 hr 11/03/18 11/03/18 Range/Units 05:58 05:58 WBC 11.3 H (5.0-10.0) 10^3/uL RBC 4.19 L (4.6-6.2) 10^6/uL Hgb 12.4 L (14.0-18.0) g/dL Hct 38.8 L (40.0-54.0) % MCV 92.6 (80-100) fL MCH 29.6 (27.0-34.0) pg MCHC 32.0 L (33.0-35.0) g/dL Plt Count 309 (150-450) 10^3/uL Neut % (Auto) 75.3 H (42.2-75.2) % Lymph % (Auto) 14.0 L (20.5-50.1) % [place] % (Auto) 9.2 H (2-8) % Eos % (Auto) 1.2 (1.0-3.0) % Baso % (Auto) 0.3 (0.0-1.0) % Sodium 137 (135-145) mmol/L Potassium 4.2 (3.6-5.0) mmol/L Chloride 102 (101-111) mmol/L Carbon Dioxide 24.0 (21.0-31.0) mmol/L Anion Gap 15.2 BUN 20 H (7-18) mg/dL Creatinine 1.1 (0.6-1.3) mg/dL Est Cr Clr Drug Dosing 64.33 mL/min Estimated GFR (MDRD) > 60 Glucose 82 (74-105) mg/dL Calcium 8.5 (8.4-10.2) mg/dl Kervin Results Last 24 Hours: Microbiology 11/02/18 22:00 Gram Stain - Final Sputum - Expectorated 11/01/18 23:25 Aerobic Blood Culture - Preliminary Blood - Venous - Lab Draw NO GROWTH AFTER 1 DAY Anaerobic Blood Culture - Preliminary NO GROWTH AFTER 1 DAY 11/01/18 23:20 Aerobic Blood Culture - Preliminary Blood - Venous NO GROWTH AFTER 1 DAY Anaerobic Blood Culture - Final Med Orders - Current: Current Medications Acetaminophen (Tylenol) 650 mg PO Q4H PRN PRN Reason: Pain (Mild 1-3)/fever Last Admin: 11/03/18 06:17 Dose: 650 mg Heparin Sodium (Porcine) (Heparin Sodium) 5,000 units SUBCUT Q8HR [facility] Last Admin: 11/03/18 06:18 Dose: 5,000 units Sodium Chloride (Normal Saline) 1,000 mls @ 999 mls/hr IV ASDIRECTED [facility] Last Admin: 11/01/18 23:50 Dose: 999 mls/hr Levofloxacin/Dextrose 750 mg/ (Premix) 150 mls @ 100 mls/hr IV Q48H [facility] Last Infusion: 11/02/18 05:41 Dose: Infused Potassium Chloride/Sodium Chloride (Normal Saline With 20 Meq Kcl) 1,000 mls @ 75 mls/hr IV ASDIRECTED [facility] Last Admin: 11/02/18 20:08 Dose: 75 mls/hr Ibuprofen (Motrin) 400 mg PO Q6H PRN PRN Reason: Pain (moderate 4-6) Lactulose (Cephulac) 20 gm PO BID [facility] Last Admin: 11/03/18 09:04 Dose: Not Given Lidocaine (Lidoderm 5%) 0 mg TOP DAILY [facility] Last Admin: 11/03/18 09:04 Dose: 700 mg Miscellaneous Information (Remove Patch) 0 ea TRDERM DAILY@2100 [facility] Last Admin: 11/02/18 22:01 Dose: Not Given Prednisone (Prednisone) 4 mg PO DAILY [facility] Last Admin: 11/03/18 09:03 Dose: 4 mg Senna/Docusate Sodium (Senna Plus) 1 tab PO BID [facility] Last Admin: 11/03/18 09:04 Dose: Not Given Simvastatin (Zocor) 20 mg PO BEDTIME [facility] Last Admin: 11/02/18 22:01 Dose: 20 mg Sodium Chloride (Saline Flush) 10 ml FLUSH ASDIRECTED PRN PRN Reason: Keep Vein Open Last Admin: 11/02/18 05:41 Dose: 10 ml Zolpidem Tartrate (Ambien) 5 mg PO BEDTIME PRN PRN Reason: Sleep Discontinued Medications Levofloxacin/Dextrose (Levaquin In D5w 750 Mg/150 Ml) Confirm Administered Dose 150 mls @ as directed IV .STK-MED ONE Stop: 11/02/18 03:49 Last Admin: 11/02/18 05:34 Dose: Not Given Potassium Chloride/Sodium Chloride (Normal Saline With 20 Meq Kcl) Confirm Administered Dose 1,000 mls @ as directed .ROUTE .STK-MED ONE Stop: 11/02/18 03:59 Last Admin: 11/02/18 05:35 Dose: Not Given Ondansetron HCl (Zofran) 4 mg IV ONETIME ONE Stop: 11/01/18 23:44 Last Admin: 11/01/18 23:55 Dose: 4 mg - Exam General: Alert, Oriented Lungs: Clear to Auscultation, Normal Respiratory Effort Cardiovascular: Regular Rate, Regular Rhythm GI/Abdominal Exam: Normal Bowel Sounds Skin: Warm, Dry, Intact Neurological: No New Focal Deficit Psy/Mental Status: Alert, Normal Affect, Normal Mood - Problem List Review Problem List Initiated/Reviewed/Updated: Yes - My Orders Last 24 Hours: My Active Orders 11/03/18 09:48 STREP PNEUMONIAE ANTIGEN [MREF] Urgent - Plan Plan:: Left rib cage pain secondary to trauma No apparent rib fracture Continue lidocaine patch Constipation Resolved community acquired pneumonia Sputum culture concerning for strep pneumo Will treat with levofloxacin Check urine strep pneumo antigen temporal arthritis Continue 4 mg prednisone daily Dyslipidemia Continue home dose Zocor DVT prophylaxis subcutaneous heparin
[2018-11-03] MEDS ORDERED: Sodium Chloride 0.9% 10 ML Syringe FLUSH PRN (11:11)
[2018-11-03] MEDS: Simvastatin 10 MG Tab PO SCH (20:46)
[2018-11-03] MEDS: Sodium Chloride 0.9% 10 ML Syringe FLUSH PRN (20:48)
[2018-11-04] MEDS: Levofloxacin/Dextrose 5%-Water 750 MG in Premix Bag 1 BAG IV SCH (03:18)
[2018-11-04] MEDS: Sodium Chloride 0.9% 10 ML Syringe FLUSH PRN ×2 (03:18→05:05)
[2018-11-04] MEDS: Heparin Sodium 5,000 Units/ML Vial SUBCUT SCH (05:09)
[2018-11-04] MEDS: predniSONE 1 MG Tab PO SCH (08:44)
[2018-11-04] MEDS: Acetaminophen 325 MG Tab PO PRN (08:45)
[2018-11-04] MEDS: Lactulose Soln 10 GM/15 ML 30 ML UD Cup PO SCH (08:45)
[2018-11-04] MEDS: Lidocaine 5% 700 MG Patch TOP SCH (08:46)
--- NOTE | 2018-11-04 10:37 | PCM.DCSUM1 ---
Discharge Summary - Hospital Course Free Text/Narrative:: 68-year-old gentleman presented with constipation, left upper abdominal/left lower rib cage pain, fever and chills. Few days prior to admission, the patient fell and hit the left lower rib cage. Was in the emergency room. No fracture was noted. At home was taking Tylenol and "muscle relaxant". He developed chills , associated fever, sputum. There is diagnosed with pneumonia, started on IV Levaquin. Patient's symptoms improved significantly. Pain was controlled with lidocaine patch. Is later discharged on oral antibiotics in stable condition. - Discharge Data Discharge Date: 11/04/18 Discharge Disposition: Home, Self-Care 01 Condition: Good - Discharge Plan *PRESCRIPTION DRUG MONITORING PROGRAM REVIEWED*: No *COPY OF PRESCRIPTION DRUG MONITORING REPORT IN PATIENT JAYE: No Prescriptions/Med Rec: Amoxicillin/Clavulanate K [Augmentin 875-125 MG] 1 tab PO BID #14 tablet Lidocaine 5% [Lidoderm 5%] 0 mg TOP DAILY #10 patch Home Medications: Home Meds Simvastatin 20 mg PO BEDTIME 04/01/14 [History] Cyclobenzaprine [Flexeril] 5 mg PO Q8H PRN 11/02/18 [History] predniSONE [Prednisone] 1 mg PO DAILY 11/02/18 [History] Amoxicillin/Clavulanate K [Augmentin 875-125 MG] 1 tab PO BID #14 tablet [Rx] Lidocaine 5% [Lidoderm 5%] 0 mg TOP DAILY #10 patch 11/04/18 [Rx] Patient Handouts: Community-Acquired Pneumonia, Adult, [id number] Referrals: PCP,None [Ordering Only Provider] - - Discharge Summary/Plan Comment DC Time >30 min.: Yes - General Info Date of Service: 11/04/18 Functional Status: Reports: Pain Controlled - Review of Systems General: Reports: No Symptoms HEENT: Reports: No Symptoms Pulmonary: Reports: No Symptoms Cardiovascular: Reports: No Symptoms Gastrointestinal: Reports: No Symptoms Genitourinary: Reports: No Symptoms Musculoskeletal: Reports: No Symptoms Skin: Reports: No Symptoms Neurological: Reports: No Symptoms Psychiatric: Reports: No Symptoms - Patient Data Vitals - Most Recent: Last Vital Signs Temp 36.8 C 11/04/18 08:21 Pulse 67 11/04/18 08:21 Resp 20 11/04/18 08:21 BP 116/62 11/04/18 08:21 Pulse Ox 95 11/04/18 08:21 Weight - Most Recent: 70.76 kg I&O - Last 24 hours: Intake & Output 11/03/18 11/04/18 11/04/18 22:59 06:59 14:59 Intake Total 440 738 240 Balance 440 738 240 GABY Results - Last 24 hrs: Microbiology 11/03/18 11:00 Streptococcus pneumoniae Antigen (M - Final Urine 11/02/18 22:00 Gram Stain - Final Sputum - Expectorated Sputum Culture - Preliminary YEAST 11/01/18 23:25 Aerobic Blood Culture - Preliminary Blood - Venous - Lab Draw NO GROWTH AFTER 2 DAYS Anaerobic Blood Culture - Preliminary NO GROWTH AFTER 2 DAYS 11/01/18 23:20 Aerobic Blood Culture - Preliminary Blood - Venous NO GROWTH AFTER 2 DAYS Anaerobic Blood Culture - Final Med Orders - Current: Current Medications Acetaminophen (Tylenol) 650 mg PO Q4H PRN PRN Reason: Pain (Mild 1-3)/fever Last Admin: 11/04/18 08:45 Dose: 650 mg Heparin Sodium (Porcine) (Heparin Sodium) 5,000 units SUBCUT Q8HR [facility] Last Admin: 11/04/18 05:09 Dose: 5,000 units Levofloxacin/Dextrose 750 mg/ (Premix) 150 mls @ 100 mls/hr IV Q48H [facility] Last Infusion: 11/04/18 05:03 Dose: Infused Ibuprofen (Motrin) 400 mg PO Q6H PRN PRN Reason: Pain (moderate 4-6) Lactulose (Cephulac) 20 gm PO BID [facility] Last Admin: 11/04/18 08:45 Dose: Not Given Lidocaine (Lidoderm 5%) 0 mg TOP DAILY [facility] Last Admin: 11/04/18 08:46 Dose: 700 mg Miscellaneous Information (Remove Patch) 0 ea TRDERM DAILY@2100 [facility] Last Admin: 11/03/18 20:52 Dose: Not Given Prednisone (Prednisone) 4 mg PO DAILY [facility] Last Admin: 11/04/18 08:44 Dose: 4 mg Senna/Docusate Sodium (Senna Plus) 1 tab PO BID [facility] Last Admin: 11/04/18 08:45 Dose: Not Given Simvastatin (Zocor) 20 mg PO BEDTIME [facility] Last Admin: 11/03/18 20:46 Dose: 20 mg Sodium Chloride (Saline Flush) 10 ml FLUSH ASDIRECTED PRN PRN Reason: Keep Vein Open Last Admin: 11/04/18 05:05 Dose: 10 ml Sodium Chloride (Saline Flush) 10 ml FLUSH ASDIRECTED PRN PRN Reason: Keep Vein Open Zolpidem Tartrate (Ambien) 5 mg PO BEDTIME PRN PRN Reason: Sleep Discontinued Medications Sodium Chloride (Normal Saline) 1,000 mls @ 999 mls/hr IV ASDIRECTED [facility] Last Admin: 11/01/18 23:50 Dose: 999 mls/hr Potassium Chloride/Sodium Chloride (Normal Saline With 20 Meq Kcl) 1,000 mls @ 75 mls/hr IV ASDIRECTED [facility] Last Infusion: 11/03/18 10:55 Dose: Infused Levofloxacin/Dextrose (Levaquin In D5w 750 Mg/150 Ml) Confirm Administered Dose 150 mls @ as directed IV .STK-MED ONE Stop: 11/02/18 03:49 Last Admin: 11/02/18 05:34 Dose: Not Given Potassium Chloride/Sodium Chloride (Normal Saline With 20 Meq Kcl) Confirm Administered Dose 1,000 mls @ as directed .ROUTE .STK-MED ONE Stop: 11/02/18 03:59 Last Admin: 11/02/18 05:35 Dose: Not Given Ondansetron HCl (Zofran) 4 mg IV ONETIME ONE Stop: 11/01/18 23:44 Last Admin: 11/01/18 23:55 Dose: 4 mg - Exam General: Reports: Alert, Oriented Lungs: Reports: Clear to Auscultation, Normal Respiratory Effort Cardiovascular: Reports: Regular Rate, Regular Rhythm GI/Abdominal Exam: Normal Bowel Sounds, Soft, Non-Tender Extremities: No Pedal Edema Skin: Reports: Warm, Dry, Intact Psy/Mental Status: Reports: Alert, Normal Affect, Normal Mood
== END 2018-11-04 11:15 | disposition home or self-care (01) | DRG 194 ==
LOC: DL.ED 23:05 → UNDOADMIN 11-02 01:34 → DL.MS 11-02 01:34
PROVIDERS: ADMIT Internal Medicine; ATTEND Internal Medicine
DX: J18.1 Lobar pneumonia, unspecified organism (principal); J44.0 Chronic obstructive pulmonary disease with (acute) lower respiratory infection; H54.7 Unspecified visual loss; D72.829 Elevated white blood cell count, unspecified; M26.69 Other specified disorders of temporomandibular joint; T38.0X5A Adverse effect of glucocorticoids and synthetic analogues, initial encounter; W19.XXXA Unspecified fall, initial encounter; H91.90 Unspecified hearing loss, unspecified ear; G44.099 Other trigeminal autonomic cephalgias (TAC), not intractable; F17.210 Nicotine dependence, cigarettes, uncomplicated; E78.00 Pure hypercholesterolemia, unspecified; M54.9 Dorsalgia, unspecified; G89.29 Other chronic pain; S20.212A Contusion of left front wall of thorax, initial encounter; K59.00 Constipation, unspecified; Z88.1 Allergy status to other antibiotic agents; W10.8XXA Fall (on) (from) other stairs and steps, initial encounter; Z85.46 Personal history of malignant neoplasm of prostate; Z88.8 Allergy status to other drugs, medicaments and biological substances; Z79.899 Other long term (current) drug therapy; R06.02 Shortness of breath; R50.9 Fever, unspecified; R11.0 Nausea
CPT/HCPCS: 36415; 71046; 74019; 80053; 81001; 83605; 85025; 87040 ×2; 96361; 96374; 99285; J2405; J7030; 80048; 87070; 87205; 87899; 99284; A4217; A9270-GY; J1644; J1956; J3480

== ENCOUNTER 2019-05-02 06:26 | Day surgery (SDC) | payer MEDICARE, BC ==
[~2019-05-02 06:26] MED LIST: Midazolam 1 MG/ML 2 ML SDV ONE; Sodium Chloride 0.9% 10 ML Syringe FLUSH PRN; fentaNYL 100 MCG/2 ML SDV ONE
[2019-05-02] MEDS ORDERED: fentaNYL 100 MCG/2 ML SDV IV ONE ×4 (06:27→07:51)
[2019-05-02] MEDS ORDERED: Midazolam 1 MG/ML 2 ML SDV IV ONE ×7 (06:27→07:48)
--- NOTE | 2019-05-02 08:40 | OR ---
DATE: 05/02/2019 PROCEDURE: Total colonoscopy. INSTRUMENT USED: CF-DS640A Olympus video colonoscope. PREMEDICATIONS: Fentanyl 125 mcg intravenous, Versed 4 mg The procedure was done under pulse oximetry, BP recording, and quality assurance monitor chassis. INDICATION: Screening colonoscopic examination is done for detection of any polypoid lesions and removal, endoscopic hemostasis therapy if needed. DESCRIPTION OF PROCEDURE: Initial rectal exam showed large external hemorrhoidal tags. Rigid anoscopy was normal. The colonoscope was passed with ease up to the ileocecal area. Photographs were taken of the normal-appearing cecum, identified by landmarks of appendiceal orifice and double-bulged ileocecal folds. No bleeding was noted from any of the visualized areas at the commencement of the examination. The bowel preparation was found to be adequate, [place] scale 2 in all the regions. No stricture. No vascular ectasia. No large isolated ulcerations seen. No evidence of diffuse inflammatory bowel disease in the form of friability, contact bleeding, or ulcerations. No polyp or tumor mass identified. Probing the proximal sides of folds and flexures using adequate distention and clearing up the stool material, withdrawal of the scope was made. Cecum to rectum time over 6 minutes. No bleeding was noted from any of the visualized areas at the completion of examination. IMPRESSION: External hemorrhoids. The patient tolerated the procedure well. [facility] /[id number]
[2019-05-02] MEDS ORDERED: Dextrose 5%-0.45% NaCl 1,000 ML IV SCH (09:00)
== END 2019-05-02 10:04 | disposition home or self-care (01) ==
LOC: DL.ENDO 06:26
PROVIDERS: ATTEND Internal Medicine Gastroenterology
DX: Z12.11 Encounter for screening for malignant neoplasm of colon (principal); K64.4 Residual hemorrhoidal skin tags; E78.5 Hyperlipidemia, unspecified; F17.210 Nicotine dependence, cigarettes, uncomplicated; Z88.0 Allergy status to penicillin; Z88.5 Allergy status to narcotic agent; Z88.8 Allergy status to other drugs, medicaments and biological substances
CPT/HCPCS: G0121; J2250; J3010; J7042

== ENCOUNTER 2023-03-10 10:48 | Emergency (ER) | payer BC, OTHER ==
[2023-03-10] MEDS ORDERED: Sodium Chloride 0.9% 10 ML Syringe FLUSH PRN (11:05)
[2023-03-10 11:15] LABS: BASOPHILS PERCENT AUTO 0.1 % (0.0-1.0); EOSINOPHILS PERCENT AUTO 0.1 % (1.0-3.0); HEMATOCRIT 39.7 % (40.0-54.0); HEMOGLOBIN 13.2 g/dL (14.0-18.0); MEAN CORPUSCULAR HEMOGLOBIN 30.1 pg (27.0-34.0); MEAN CORPUSCULAR HGB CONC 33.2 g/dL (33.0-35.0); MEAN CORPUSCULAR VOLUME 90.4 fL (80-100); MONOCYTES PERCENT AUTO 16.3 % (2-8); NEUTROPHILS PERCENT AUTO 77.5 % (42.2-75.2); PLATELET COUNT,PLT 205 10^3/uL (150-450); RED BLOOD CELL COUNT 4.39 10^6/uL (4.6-6.2)
[2023-03-10] MEDS ORDERED: Sodium Chloride 0.9% 1,000 ML IV ONE ×2 (11:20→11:54)
[2023-03-10] MEDS ORDERED: Ondansetron 4 MG/2 ML SDV IVPUSH ONE (11:21)
[2023-03-10] MEDS ORDERED: Ketorolac 30 MG/ML SDV IVPUSH ONE (11:21)
[2023-03-10 11:28] LABS: A/G RATIO 1.1; ALBUMIN 3.4 g/dL (3.4-5.0); BILIRUBIN TOTAL 0.4 mg/dL (0.2-1.0); BUN/CREATININE RATIO 11.6 (No establ ref range); C-REACTIVE PROTEIN 1.82 ng/dL (<=0.30); CALCIUM 9.1 mg/dL (8.5-10.1); CREATININE 1.73 mg/dL (0.70-1.30); EST CRCL DRUG DOSING (CG) 36.6 mL/min; PROTEIN TOTAL,TP 6.6 g/dL (6.4-8.2)
[2023-03-10 11:49] LABS: INFLUENZA A NAA NEGATIVE (NEGATIVE); INFLUENZA B NAA NEGATIVE (NEGATIVE); RESPIRATORY SYNCYTIAL VIR NAA NEGATIVE (NEGATIVE)
[2023-03-10 11:52] LABS: CORONAVIRUS COVID-19 NAA POSITIVE (NEGATIVE)
== END 2023-03-10 13:13 | disposition home or self-care (01) ==
LOC: DL.ED 10:48
DX: U07.1 COVID-19 (principal); E86.0 Dehydration; J44.9 Chronic obstructive pulmonary disease, unspecified; E78.00 Pure hypercholesterolemia, unspecified; Z88.0 Allergy status to penicillin; Z88.8 Allergy status to other drugs, medicaments and biological substances; Z79.899 Other long term (current) drug therapy
CPT/HCPCS: 0241U; 36415; 71045; 80053; 83735; 84484; 85025; 86140; 93005; 96361; 96374; 96375; 99285; J1885; J2405; J7030; J3490

== ENCOUNTER 2023-04-16 14:12 | Emergency (ER) | payer OTHER ==
[2023-04-16] MEDS ORDERED: Iopamidol 612 MG/ML 100 ML Bottle IVPUSH ONE (15:03)
[2023-04-16 15:11] LABS: BASOPHILS PERCENT AUTO 0.2 % (0.0-1.0); EOSINOPHILS PERCENT AUTO 0.9 % (1.0-3.0); HEMATOCRIT 38.1 % (40.0-54.0); HEMOGLOBIN 12.5 g/dL (14.0-18.0); MEAN CORPUSCULAR HEMOGLOBIN 29.9 pg (27.0-34.0); MEAN CORPUSCULAR HGB CONC 32.8 g/dL (33.0-35.0); MEAN CORPUSCULAR VOLUME 91.1 fL (80-100); MONOCYTES PERCENT AUTO 7.1 % (2-8); NEUTROPHILS PERCENT AUTO 82.8 % (42.2-75.2); PLATELET COUNT,PLT 287 10^3/uL (150-450); RED BLOOD CELL COUNT 4.18 10^6/uL (4.6-6.2); WHITE BLOOD CELL COUNT,WBC 12.4 10^3/uL (5.0-10.0)
[2023-04-16 15:21] LABS: ALANINE AMINOTRANSFERASE,ALT 16 U/L (16-63); ALBUMIN 3.3 g/dL (3.4-5.0); ALKALINE PHOSPHATASE 84 U/L (46-116); ANION GAP 10.5 mEq/L (7-13); ASPARTATE AMNIOTRANSFERASE,AST 15 U/L (15-37); BILIRUBIN TOTAL 0.4 mg/dL (0.2-1.0); BLOOD UREA NITROGEN,BUN 15 mg/dL (7-18); BUN/CREATININE RATIO 10.8 (No establ ref range); CARBON DIOXIDE,CO2 29 mmol/L (21-32); CHLORIDE,CL 100 mmol/L (98-107); CREATININE 1.39 mg/dL (0.70-1.30); GLUCOSE RANDOM 136 mg/dL (70-99); POTASSIUM,K 3.5 mmol/L (3.5-5.1); PROTEIN TOTAL,TP 6.8 g/dL (6.4-8.2); SODIUM,NA 136 mmol/L (136-145)
[2023-04-16 15:23] LABS: A/G RATIO 0.94; ESTIMATED GFR 54 mL/min (>=60)
[2023-04-16] MEDS ORDERED: Lactated Ringers 1,000 ML IV ONE (15:36)
[2023-04-16] MEDS ORDERED: Acetaminophen 500 MG Tab PO ONE (15:39)
== END 2023-04-16 17:50 | disposition home or self-care (01) ==
LOC: DL.ED 14:12
DX: S42.102A Fracture of unspecified part of scapula, left shoulder, initial encounter for closed fracture (principal); S62.307A Unspecified fracture of fifth metacarpal bone, left hand, initial encounter for closed fracture; E78.00 Pure hypercholesterolemia, unspecified; J44.9 Chronic obstructive pulmonary disease, unspecified; Z79.899 Other long term (current) drug therapy; Z88.0 Allergy status to penicillin; Z88.8 Allergy status to other drugs, medicaments and biological substances; Z88.5 Allergy status to narcotic agent; Z88.1 Allergy status to other antibiotic agents; W11.XXXA Fall on and from ladder, initial encounter
CPT/HCPCS: 29125; 36415; 70450; 71260; 72125; 73200; 74177; 80053; 85025; 99283; 99284; J7120; Q9967

== ENCOUNTER 2023-05-20 09:24 | Observation (INO) | payer OTHER ==
[2023-05-20 10:32] LABS: BASOPHILS PERCENT AUTO 0.2 % (0.0-1.0); HEMATOCRIT 40.4 % (40.0-54.0); HEMOGLOBIN 13.1 g/dL (14.0-18.0); LYMPHOCYTES PERCENT AUTO 16.1 % (20.5-50.1); MEAN CORPUSCULAR HEMOGLOBIN 29.6 pg (27.0-34.0); MEAN CORPUSCULAR HGB CONC 32.4 g/dL (33.0-35.0); MEAN CORPUSCULAR VOLUME 91.4 fL (80-100); MONOCYTES PERCENT AUTO 8.3 % (2-8); NEUTROPHILS PERCENT AUTO 72.4 % (42.2-75.2); PLATELET COUNT,PLT 273 10^3/uL (150-450); RED BLOOD CELL COUNT 4.42 10^6/uL (4.6-6.2); WHITE BLOOD CELL COUNT,WBC 8.5 10^3/uL (5.0-10.0)
[2023-05-20] MEDS ORDERED: Lactated Ringers 1,000 ML IV ONE (10:32)
[2023-05-20 10:46] LABS: ALBUMIN 3.2 g/dL (3.4-5.0); BILIRUBIN TOTAL 0.5 mg/dL (0.2-1.0); BUN/CREATININE RATIO 14.4 (No establ ref range); CREATININE 1.32 mg/dL (0.70-1.30); EST CRCL DRUG DOSING (CG) 46.49 mL/min; PROTEIN TOTAL,TP 6.7 g/dL (6.4-8.2)
[2023-05-20 10:49] LABS: A/G RATIO 0.91
[2023-05-20] MEDS ORDERED: Metoprolol Tartrate 25 MG Tab PO ONE (13:13)
[2023-05-20] MEDS ORDERED: Acetaminophen/HYDROcodone 325-5 MG Tab PO PRN (16:19)
[2023-05-20] MEDS ORDERED: Ondansetron 4 MG/2 ML SDV IVPUSH PRN (16:19)
[2023-05-20] MEDS ORDERED: Polyethylene Glycol 3350 Powder 17 GM Packet PO PRN (16:19)
[2023-05-20] MEDS ORDERED: Acetaminophen 325 MG Tab PO PRN (16:19)
[2023-05-20] MEDS ORDERED: HYDROmorphone 0.5 MG/0.5 ML Syringe IVPUSH PRN (16:19)
[2023-05-20] MEDS ORDERED: Naloxone 2 MG/2 ML Syringe IVPUSH PRN (16:19)
[2023-05-20] MEDS ORDERED: Magnesium Hydroxide 400 MG/5 ML Susp 30 ML Cup PO PRN (16:19)
[2023-05-20] MEDS ORDERED: Sennosides/Docusate Sodium 50-8.6 MG Tab PO PRN (16:19)
[2023-05-20] MEDS ORDERED: Albuterol/Ipratropium 3.0-0.5 MG/3 ML Neb Soln NEB PRN (16:19)
[2023-05-20] MEDS ORDERED: Metoprolol Tartrate 5 MG/5 ML SDV IVPUSH PRN (16:21)
[2023-05-20] MEDS ORDERED: hydrALAZINE 20 MG/ML SDV IVPUSH PRN (16:21)
[2023-05-20] MEDS ORDERED: Acetaminophen 500 MG Tab PO PRN (16:35)
[2023-05-20] MEDS ORDERED: Simvastatin 10 MG Tab PO SCH (21:00)
[2023-05-21 06:28] LABS: BASOPHILS PERCENT AUTO 0.3 % (0.0-1.0); EOSINOPHILS PERCENT AUTO 2.9 % (1.0-3.0); HEMATOCRIT 36.6 % (40.0-54.0); HEMOGLOBIN 11.8 g/dL (14.0-18.0); MEAN CORPUSCULAR HEMOGLOBIN 29.6 pg (27.0-34.0); MEAN CORPUSCULAR HGB CONC 32.2 g/dL (33.0-35.0); MEAN CORPUSCULAR VOLUME 91.7 fL (80-100); MONOCYTES PERCENT AUTO 10.3 % (2-8); NEUTROPHILS PERCENT AUTO 63.5 % (42.2-75.2); PLATELET COUNT,PLT 247 10^3/uL (150-450); RED BLOOD CELL COUNT 3.99 10^6/uL (4.6-6.2); WHITE BLOOD CELL COUNT,WBC 6.8 10^3/uL (5.0-10.0)
[2023-05-21 06:53] LABS: ALBUMIN 2.8 g/dL (3.4-5.0); ANION GAP 12.1 mEq/L (7-13); BILIRUBIN TOTAL 0.3 mg/dL (0.2-1.0); BUN/CREATININE RATIO 16.9 (No establ ref range); CALCIUM 8.8 mg/dL (8.5-10.1); CREATININE 1.18 mg/dL (0.70-1.30); EST CRCL DRUG DOSING (CG) 50.79 mL/min; POTASSIUM,K 4.1 mmol/L (3.5-5.1); PROTEIN TOTAL,TP 5.9 g/dL (6.4-8.2)
[2023-05-21 06:57] LABS: A/G RATIO 0.9
== END 2023-05-21 10:26 | disposition home or self-care (01) ==
LOC: DL.ED 09:24 → DL.MS 13:16
PROVIDERS: ADMIT Internal Medicine; ATTEND Internal Medicine
DX: I47.10 Supraventricular tachycardia, unspecified (principal); I49.5 Sick sinus syndrome; J44.9 Chronic obstructive pulmonary disease, unspecified; E88.09 Other disorders of plasma-protein metabolism, not elsewhere classified; K21.9 Gastro-esophageal reflux disease without esophagitis; E78.00 Pure hypercholesterolemia, unspecified; F17.210 Nicotine dependence, cigarettes, uncomplicated; Z79.899 Other long term (current) drug therapy; Z88.0 Allergy status to penicillin
CPT/HCPCS: 36415; 71046; 80053; 82306; 82550; 83735; 84443; 84484; 85025; 93005; 93880; 96360; 99285; A9270; G0378; J7120; 93010; 99284

== ENCOUNTER 2023-11-18 14:33 | Observation (INO) | payer OTHER ==
[2023-11-18 16:16] LABS: BASOPHILS PERCENT AUTO 0.3 % (0.0-1.0); EOSINOPHILS PERCENT AUTO 1.3 % (1.0-3.0); HEMATOCRIT 39.2 % (40.0-54.0); HEMOGLOBIN 12.8 g/dL (14.0-18.0); LYMPHOCYTES PERCENT AUTO 14.9 % (20.5-50.1); MEAN CORPUSCULAR HEMOGLOBIN 29.9 pg (27.0-34.0); MEAN CORPUSCULAR HGB CONC 32.7 g/dL (33.0-35.0); MEAN CORPUSCULAR VOLUME 91.6 fL (80-100); MONOCYTES PERCENT AUTO 8.6 % (2-8); NEUTROPHILS PERCENT AUTO 74.9 % (42.2-75.2); PLATELET COUNT,PLT 252 10^3/uL (150-450); RED BLOOD CELL COUNT 4.28 10^6/uL (4.6-6.2); WHITE BLOOD CELL COUNT,WBC 7.9 10^3/uL (5.0-10.0)
[2023-11-18] MEDS: Sodium Chloride 0.9% 1,000 ML IV ONE ×2 (16:24→18:54)
[2023-11-18 16:38] LABS: APPEARANCE,URINE CLEAR (CLEAR); BILIRUBIN,URINE NEGATIVE (NEGATIVE); COLOR,URINE YELLOW (YELLOW); GLUCOSE,URINE NEGATIVE (NEGATIVE); KETONES,URINE NEGATIVE (NEGATIVE); LEUKOCYTE ESTERASE,URINE NEGATIVE (NEGATIVE); NITRITE,URINE NEGATIVE (NEGATIVE); OCCULT BLOOD,URINE TRACE-INTACT (NEGATIVE); PH,URINE 6.5 (5.0-9.0); PROTEIN,URINE NEGATIVE (NEGATIVE); UROBILINOGEN,URINE 0.2 mg/dL (0.2-1.0)
[2023-11-18 16:38] LABS: ALBUMIN 3.3 g/dL (3.4-5.0); ANION GAP 11.2 mEq/L (7-13); BILIRUBIN TOTAL 0.4 mg/dL (0.2-1.0); BUN/CREATININE RATIO 15.9 (No establ ref range); CALCIUM 9.7 mg/dL (8.5-10.1); CREATININE 1.76 mg/dL (0.70-1.30); EST CRCL DRUG DOSING (CG) 34.3 mL/min; MAGNESIUM 2.3 mg/dL (1.8-2.4); POTASSIUM,K 4.2 mmol/L (3.5-5.1); PROTEIN TOTAL,TP 6.4 g/dL (6.4-8.2)
[2023-11-18 16:40] LABS: A/G RATIO 1.06
[2023-11-18 17:16] LABS: BACTERIA,URINE RARE /HPF (0-FEW/HPF); EPITHELIAL CELLS,URINE RARE /HPF (NOT SEEN); RBC,URINE 0-5 /HPF (0-5); WBC,URINE 0-5 /HPF (0-5/HPF)
[2023-11-18] MEDS: Doxycycline Monohydrate 100 MG Cap PO ONE (18:42)
[2023-11-18] MEDS ORDERED: Acetaminophen 325 MG Tab PO PRN (19:34)
[2023-11-18] MEDS ORDERED: Naloxone 2 MG/2 ML Syringe IVPUSH PRN (19:34)
[2023-11-18] MEDS ORDERED: Albuterol/Ipratropium 3.0-0.5 MG/3 ML Neb Soln NEB PRN (19:34)
[2023-11-18] MEDS ORDERED: Ondansetron 4 MG/2 ML SDV IVPUSH PRN (19:34)
[2023-11-18] MEDS ORDERED: Polyethylene Glycol 3350 Powder 17 GM Packet PO PRN (19:34)
[2023-11-18] MEDS ORDERED: HYDROmorphone 0.5 MG/0.5 ML Syringe IVPUSH PRN (19:34)
[2023-11-18] MEDS ORDERED: Sennosides/Docusate Sodium 50-8.6 MG Tab PO PRN (19:34)
[2023-11-18] MEDS ORDERED: Melatonin 3 MG Tab PO PRN (19:34)
[2023-11-18] MEDS ORDERED: Magnesium Hydroxide 400 MG/5 ML Susp 30 ML Cup PO PRN (19:34)
[2023-11-18] MEDS ORDERED: Acetaminophen/HYDROcodone 325-5 MG Tab PO PRN (19:34)
[2023-11-18] MEDS ORDERED: Acetaminophen 500 MG Tab PO PRN (21:00)
[2023-11-18] MEDS ORDERED: Non-Formulary Medication 1 Each (Alendronate [Fosamax] 70 MG/75 ML Bottle) IM SCH (21:00)
[2023-11-18] MEDS: Simvastatin 10 MG Tab PO SCH (21:29)
[2023-11-18] MEDS: Pantoprazole 40 MG Tab.CR PO ONE (21:29)
[2023-11-18] MEDS: Metoprolol Tartrate 25 MG Tab PO SCH (21:29)
[2023-11-19 06:24] LABS: BASOPHILS PERCENT AUTO 0.4 % (0.0-1.0); EOSINOPHILS PERCENT AUTO 2.3 % (1.0-3.0); HEMATOCRIT 34.8 % (40.0-54.0); HEMOGLOBIN 11.2 g/dL (14.0-18.0); LYMPHOCYTES PERCENT AUTO 26.5 % (20.5-50.1); MEAN CORPUSCULAR HEMOGLOBIN 29.8 pg (27.0-34.0); MEAN CORPUSCULAR HGB CONC 32.2 g/dL (33.0-35.0); MEAN CORPUSCULAR VOLUME 92.6 fL (80-100); MONOCYTES PERCENT AUTO 10.1 % (2-8); NEUTROPHILS PERCENT AUTO 60.7 % (42.2-75.2); PLATELET COUNT,PLT 235 10^3/uL (150-450); RED BLOOD CELL COUNT 3.76 10^6/uL (4.6-6.2); WHITE BLOOD CELL COUNT,WBC 6.8 10^3/uL (5.0-10.0)
[2023-11-19 06:52] LABS: ALANINE AMINOTRANSFERASE,ALT 15 U/L (16-63); ALBUMIN 2.7 g/dL (3.4-5.0); ALKALINE PHOSPHATASE 55 U/L (46-116); ANION GAP 12.1 mEq/L (7-13); ASPARTATE AMNIOTRANSFERASE,AST 12 U/L (15-37); BILIRUBIN TOTAL 0.4 mg/dL (0.2-1.0); BLOOD UREA NITROGEN,BUN 23 mg/dL (7-18); BUN/CREATININE RATIO 16.9 (No establ ref range); CALCIUM 8.5 mg/dL (8.5-10.1); CARBON DIOXIDE,CO2 25 mmol/L (21-32); CHLORIDE,CL 108 mmol/L (98-107); CREATININE 1.36 mg/dL (0.70-1.30); GLUCOSE RANDOM 77 mg/dL (70-99); MAGNESIUM 1.9 mg/dL (1.8-2.4); POTASSIUM,K 4.1 mmol/L (3.5-5.1); PROTEIN TOTAL,TP 5.5 g/dL (6.4-8.2); SODIUM,NA 141 mmol/L (136-145)
[2023-11-19 06:56] LABS: A/G RATIO 0.96; ESTIMATED GFR 55 mL/min (>=60)
[2023-11-19] MEDS: Doxycycline Monohydrate 100 MG Cap PO SCH (08:34)
[2023-11-19] MEDS: Saccharomyces Boulardii (Probiotic) 250 MG Cap PO SCH (08:35)
[2023-11-19] MEDS: Carvedilol 6.25 MG Tab PO SCH (08:36)
[2023-11-19] MEDS: Sodium Chloride 0.9% 1,000 ML IV SCH (08:39)
[2023-11-21 18:47] LABS: ANA BY ELISA, IGG W/RFLX IFA None Detected (None Detected)
== END 2023-11-19 12:55 | disposition home or self-care (01) ==
LOC: DL.ED 14:33 → INTOOBSV 18:33 → DL.MS 18:33 → UNDOADMOB 18:33 → DL.MS 18:33
PROVIDERS: ADMIT Internal Medicine; ATTEND Internal Medicine
DX: R55 Syncope and collapse (principal); R00.1 Bradycardia, unspecified; I65.22 Occlusion and stenosis of left carotid artery; E86.9 Volume depletion, unspecified; N17.9 Acute kidney failure, unspecified; S80.861A Insect bite (nonvenomous), right lower leg, initial encounter; S10.96XA Insect bite of unspecified part of neck, initial encounter; S20.369A Insect bite (nonvenomous) of unspecified front wall of thorax, initial encounter; E88.09 Other disorders of plasma-protein metabolism, not elsewhere classified; I10 Essential (primary) hypertension; E83.52 Hypercalcemia; E78.5 Hyperlipidemia, unspecified; J44.9 Chronic obstructive pulmonary disease, unspecified; K21.9 Gastro-esophageal reflux disease without esophagitis; F17.210 Nicotine dependence, cigarettes, uncomplicated; Z88.1 Allergy status to other antibiotic agents; Z88.8 Allergy status to other drugs, medicaments and biological substances; Z79.899 Other long term (current) drug therapy
CPT/HCPCS: 36415; 70450; 71045; 80053; 81001; 82947; 83735; 84484; 85025; 86038; 93005; 96360; 96361; 99285; A9270; J7030; 86618; G0378

== ENCOUNTER 2025-01-16 12:49 | Emergency (ER) | payer OTHER ==
[2025-01-16 13:53] LABS: BASOPHILS PERCENT AUTO 0.3 % (0.0-1.0); EOSINOPHILS PERCENT AUTO 2.0 % (1.0-3.0); LYMPHOCYTES PERCENT AUTO 13.4 % (20.5-50.1); MONOCYTES PERCENT AUTO 7.3 % (2-8); NEUTROPHILS PERCENT AUTO 77.0 % (42.2-75.2); PLATELET COUNT,PLT 266 10^3/uL (150-450); RED BLOOD CELL COUNT 4.58 10^6/uL (4.6-6.2); WHITE BLOOD CELL COUNT,WBC 10.1 10^3/uL (5.0-10.0)
[2025-01-16] MEDS: Albuterol 0.083% 2.5 MG/3 ML Neb Soln NEB ONE (14:04)
[2025-01-16 14:07] LABS: A/G RATIO 1.0; ALANINE AMINOTRANSFERASE,ALT 22.0 U/L (16-63); ASPARTATE AMNIOTRANSFERASE,AST 19.0 U/L (15-37); BILIRUBIN TOTAL 0.5 mg/dL (0.2-1.0); BLOOD UREA NITROGEN,BUN 20.0 mg/dL (7-18); CARBON DIOXIDE,CO2 33.0 mmol/L (21-32); CHLORIDE,CL 103.0 mmol/L (98-107); CREATININE 1.43 mg/dL (0.70-1.30); EST CRCL DRUG DOSING (CG) 42.39 mL/min; GLUCOSE RANDOM 94.0 mg/dL (70-99); POTASSIUM,K 4.4 mmol/L (3.5-5.1); PROTEIN TOTAL,TP 6.8 g/dL (6.4-8.2); SODIUM,NA 138.0 mmol/L (136-145)
[2025-01-16 14:13] LABS: B-TYPE NATRIURETIC PEPTIDE,BNP 109.0 pg/ml (0-100)
[2025-01-16 14:14] LABS: ESTIMATED GFR 51.0 mL/min (>=60)
[2025-01-16] MEDS: Iopamidol 612 MG/ML 100 ML Bottle IVPUSH ONE (14:33)
== END 2025-01-16 16:23 | disposition home or self-care (01) ==
LOC: DL.ED 12:49
DX: J44.1 Chronic obstructive pulmonary disease with (acute) exacerbation (principal); E78.00 Pure hypercholesterolemia, unspecified; K21.9 Gastro-esophageal reflux disease without esophagitis; Z88.0 Allergy status to penicillin; Z79.899 Other long term (current) drug therapy; Z79.01 Long term (current) use of anticoagulants; Z95.0 Presence of cardiac pacemaker
CPT/HCPCS: 36415; 71046; 71260; 80053; 83735; 83880; 85025; 86140; 87426; 94640; 99284; 99285; J7613; Q9967; A9270-GY